=== PATIENT | female | born 1955 | race American Indian/Alaskan Native ===

== ENCOUNTER 2021-11-15 06:29 | Emergency (ER) | payer MEDICARE ==
[2021-11-15 13:37] LABS: Bilirubin,Urine NEG (Negative); Blood,Urine NEG (Negative); Color,Urine Straw (Yellow); Protein,Urine <15 mg/dL mg/dL (Negative); Urobilinogen,Urine < 2.0 mg/dL (<2.0)
[2021-11-15 13:38] LABS: RBC,Urine < 1.0 /HPF (0.0-6.0)
--- NOTE | 2021-11-15 13:45 | Emergency Department Report ---
ED Female HPI - General Chief complaint: Abdominal Pain Stated complaint: FLANK PAIN Source: patient, EMS Mode of arrival: Stretcher Limitations: No Limitations - History of Present Illness Initial comments: 66-year-old female presents to the ED complaining of dysuria x4 days. Patient states she had acute urinary tract infection in the past .Patient state she has been drinking cranberry juice which has has help in the past .Patient denies any abd pain ,nausea, fever ,and chills. Patient states that past medical history is hypertension. Patient is alert and oriented x3. No acute distress noted. No ill appearance noted. Onset/Timin -: days(s) Worsens with: urination - Related Data Previous Rx's Medication Instructions Recorded Last Taken Type cephALEXin [Keflex] 500 mg PO Q12HR 5 Days #10 cap 11/15/21 Unknown Rx Allergies Allergy/AdvReac Type Severity Reaction Status Date / Time codeine Allergy Hives Verified 11/15/21 07:06 morphine Allergy Itching Verified 11/15/21 07:07 ED Review of Systems ROS: Stated complaint: FLANK PAIN Other details as noted in HPI Constitutional: denies: chills, fever Eyes: denies: eye pain, eye discharge, vision change ENT: denies: ear pain, throat pain Respiratory: denies: cough, shortness of breath, wheezing Cardiovascular: denies: chest pain, palpitations Endocrine: no symptoms reported Gastrointestinal: denies: abdominal pain, nausea, diarrhea Genitourinary: urgency, dysuria. denies: discharge Musculoskeletal: denies: back pain, joint swelling, arthralgia Skin: denies: rash, lesions Neurological: denies: headache, weakness, paresthesias Psychiatric: denies: anxiety, depression Hematological/Lymphatic: denies: easy bleeding, easy bruising ED Past Medical Hx - Past Medical History Previous Medical History?: Yes Hx Hypertension: Yes Hx Psychiatric Treatment: Yes (Schizophrenia) Additional medical history: Sleep Apnea - Surgical History Past Surgical History?: No - Social History Smoking Status: Never Smoker Substance Use Type: None - Medications Home Medications: Home Medications Medication Instructions Recorded Confirmed Last Taken Type cephALEXin [Keflex] 500 mg PO Q12HR 5 Days #10 cap 11/15/21 Unknown Rx ED Physical Exam - General Limitations: No Limitations General appearance: alert, in no apparent distress - Head Head exam: Present: atraumatic, normocephalic - Eye Eye exam: Present: normal appearance - ENT ENT exam: Present: mucous membranes moist - Neck Neck exam: Present: normal inspection - Respiratory Respiratory exam: Present: normal lung sounds bilaterally. Absent: respiratory distress - Cardiovascular Cardiovascular Exam: Present: regular rate, normal rhythm. Absent: systolic murmur, diastolic murmur, rubs, gallop - GI/Abdominal GI/Abdominal exam: Present: soft, normal bowel sounds - Extremities Exam Extremities exam: Present: normal inspection - Back Exam Back exam: Present: normal inspection - Neurological Exam Neurological exam: Present: alert, oriented X3 - Psychiatric Psychiatric exam: Present: normal affect, normal mood - Skin Skin exam: Present: warm, dry, intact, normal color. Absent: rash ED Course Vital Signs 11/15/21 11/15/21 11/15/21 06:30 13:15 15:02 Temperature 98.1 F 97.9 F Pulse Rate 82 78 98 H Respiratory 18 18 17 Rate Blood Pressure 164/90 151/85 Blood Pressure 128/62 [Left] O2 Sat by Pulse 100 99 97 Oximetry ED Medical Decision Making - Lab Data Result diagrams: 11/15/21 13:27 11/15/21 13:27 - Medical Decision Making 66-year-old female presents to the ED complaining of dysuria x4 days. Patient states she had acute urinary tract infection in the past .Patient state she has been drinking cranberry juice which has has help in the past .Patient denies any abd pain ,nausea, fever ,and chills. Patient states that past medical history is hypertension. Patient is alert and oriented x3. No acute distress noted. No ill appearance noted. Physical examination is unremarkable Rechecked the patient is resting quietly and comfortable and feeling better. I discussed the results of diagnostic study, my clinical impression and the plan for further treatment with the patient. Patient agrees with plan and discharge at this present time. All question addressed. I have given the patient instruction regarding a diagnosis ,expectation ,follow- up and return precaution. I explained to the patient that emergent condition may arise and to return to the ED for new worsen and any new persisting condition. I have explained the importance of following up with the primary care physician or referral physician listed below has instructed. The patient verbalized understanding of discharge instruction. Critical care attestation.: If time is entered above; I have spent that time in minutes in the direct care of this critically ill patient, excluding procedure time. ED Disposition Clinical Impression: Acute urinary tract infection Disposition: 01 HOME / SELF CARE / HOMELESS Is pt being admited?: No Does the pt Need Aspirin: No Condition: Stable Instructions: Urinary Tract Infection, Adult, Abdominal Pain (ED) Additional Instructions: Take medication as prescribed Return to the ED for any worsening symptom Prescriptions: cephALEXin [Keflex] 500 mg PO Q12HR 5 Days #10 cap Referrals: STACIA BANEGAS MD [Primary Care Provider] - 3-5 Days Forms: Work/School Release Form(ED) Time of Disposition: 14:48
[2021-11-15 14:00] LABS: Hematocrit 35.5 % (30.3-42.9); Hemoglobin 11.9 gm/dl (10.1-14.3); Mean Corpuscular HGB Conc 34 % (30-34); Mean Corpuscular Volume 88 fl (79-97); Platelet Count 288 K/mm3 (140-440); Red Blood Count 4.05 M/mm3 (3.65-5.03); Red Cell Distribution Width 16.3 % (13.2-15.2)
[2021-11-15 14:33] LABS: Alanine Aminotransferase 15 units/L (7-56); Albumin 3.9 g/dL (3.9-5); Blood Urea Nitrogen 10 mg/dL (7-17); Hemolysis Index 1
[2021-11-15 14:35] LABS: BUN/Creatinine Ratio 17
[2021-11-15 15:03] VITALS: BP 128/62
== END 2021-11-15 15:02 | disposition home or self-care (01) ==
LOC: ED 06:29
DX: N39.0 Urinary tract infection, site not specified (principal); I10 Essential (primary) hypertension; F20.9 Schizophrenia, unspecified; Z91.09 Other allergy status, other than to drugs and biological substances
CPT/HCPCS: 36415; 80053; 81001; 85027; 99284